=== PATIENT | male | born 1990 | race Caucasian/White ===

== ENCOUNTER 2017-02-17 08:57 | Emergency (ER) | payer OTHER ==
[~2017-02-17] VITALS: Ht 177.8 cm; Wt 72.0 kg
[2017-02-17 08:59] VITALS: BP 149/50; PULSE 88; RESP 15; TEMP 98.2; O2SAT 98
[2017-02-17] MEDS ORDERED: FLUORESCEIN SOD 1 MG STRIP LEFT EYE ONE (09:15)
[2017-02-17] MEDS ORDERED: ERYTHROMYCIN 0.5% OPTH OINT 3.5 GM TUBO LEFT EYE ONE (09:15)
[2017-02-17] MEDS ORDERED: PROPARACAINE HCL 0.5% OPHT SOLN 15 ML BTL LEFT EYE ONE (09:15)
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
[2017-02-17] MEDS ORDERED: IBUP1TAB7 PO (09:24)
[2017-02-17] MEDS ORDERED: CYCL10TA PO (09:24)
== END 2017-02-17 09:53 | disposition home or self-care (01) ==
LOC: NEPD 08:57
DX: S05.02XA Injury of conjunctiva and corneal abrasion without foreign body, left eye, initial encounter (principal); S39.012A Strain of muscle, fascia and tendon of lower back, initial encounter; Z72.0 Tobacco use; V48.5XXA Car driver injured in noncollision transport accident in traffic accident, initial encounter
CPT/HCPCS: 99284